=== PATIENT | female | born 1985 | race Caucasian/White ===

== ENCOUNTER 2022-01-06 09:06 | Day surgery (SDC) | payer OTHER, SELFPAY ==
--- NOTE | 2022-01-05 10:15 | P.CONAN_ITS ---
Documented by User: Chetna Weller NP 01/05/22 10:15 HPI - Anesthesia Eval Consult details Narrative: 36yo F for Colonoscopy [facility] Past Medical History Medical History (Updated 01/05/22 @ 07:59 by Mela Quijano RN) Patient denies significant medical history Surgical History Surgical History (Updated 01/05/22 @ 07:59 by Mela Quijano RN) No history of previous surgery Social History Social History Patient Tobacco Use Status: Never used Tobacco Second Hand Smoke Exposure: No Use of substances other than those prescribed or required for medical reasons: No Are you DNR?: No Advance Directives: No Advance Directives Information Provided: Yes Advance Directives on File: No Meds Allergies Allergy/AdvReac Type Severity Reaction Status Date / Time No Known Allergies Allergy Verified 01/06/22 09:17 Home Medications Medication Instructions Recorded Confirmed Last Taken Type albuterol sulfate 90 mcg/actuation 2 puff inhalation Q6-8H PRN Dyspnea 01/05/22 01/06/22 Unknown History aerosol inhaler Exam Exam Date and Time: January 05, 2022 1015 Assessment and Plan Assessment Anesthesia Assessment: Chart Reviewed Documented by User: Mak Muhammad MD 01/06/22 17:17 [facility] Past Medical History Medical History (Updated 01/05/22 @ 07:59 by Mela Quijano RN) Patient denies significant medical history Functional capacity: independent ambulation Family History Family history of problems with anesthesia: No Surgical History Surgical History (Updated 01/05/22 @ 07:59 by Mela Quijano RN) No history of previous surgery History of Problems with Anesthesia: No Social History Social History Patient Tobacco Use Status: Never used Tobacco Second Hand Smoke Exposure: No Use of substances other than those prescribed or required for medical reasons: No Are you DNR?: No Advance Directives: No Advance Directives Information Provided: Yes Advance Directives on File: No Meds Allergies Allergy/AdvReac Type Severity Reaction Status Date / Time No Known Allergies Allergy Verified 01/06/22 09:17 Home Medications Medication Instructions Recorded Confirmed Last Taken Type albuterol sulfate 90 mcg/actuation 2 puff inhalation Q6-8H PRN Dyspnea 01/05/22 01/06/22 Unknown History aerosol inhaler Exam Airway Mallampati Class: III TM Dist: >3cm Neck ROM: Full Loose/Missing/Broken Teeth: Yes Heart: S1,S2 Lungs: b/l breath sounds Assessment and Plan Assessment Anesthesia Assessment: Anesthesia Plan Discussed Final Anesthetic Review Family History of Problems with Anesthesia: No History of Problems with Anesthesia: No NPO: Yes ASA Class: I Final Preanesthetic Review: Meds/Allgs Chart Reviewed, Consent Obtained/Reviewed and Anes Risks/Benef Reviewed Patient Risk: Intermediate Procedure Risk: Intermediate Anesthetic Plan Anesthetic Plan: MAC: Disposition: Standard PACU
[2022-01-06 09:40] VITALS: BMI 20.7
[2022-01-06 09:52] VITALS: BP 115/72; PULSE 57; RESP 16; TEMP 36.9; O2SAT 100
[2022-01-06 10:00] LABS: UPreg QC Valid YES; Urine Pregnancy NEGATIVE (NEGATIVE)
[2022-01-06] MEDS: Lactated Ringers 1,000 ML 100 ML IVCONT (10:06)
--- NOTE | 2022-01-06 11:04 | MHC.SHP ---
Pre-Procedural Eval Section A Date of Service: 01/06/22 Section B Chief Complaint: Change in bowel habit Details of Present Illness: see H&P no changes Relevant Family History (Specify if Yes): No Relevant Social History: None Present Medications: None Medical History: No relevant PMH History of Previous Operations: No relevant previous surgery Allergies: Allergies Allergy/AdvReac Type Severity Reaction Status Date / Time No Known Allergies Allergy Verified 01/06/22 09:17 Review of Systems Sugical H&P ROS: Negative: Constitution, Cardiovascular, Respiratory, Neurological, Psychiatric, Hem-Onc, Allergic/Immunologic, Gastrointestinal, Genitourinary, Musculoskeletal, Integumentary, Endocrine and Eyes/Ears/Nose/Throat Exam Surgical H&P Exam: Normal: HEENT, Normal: Heart, Normal: Lungs, Normal: Extremities, Normal: Abdomen, Normal: Skin and Normal: Neurological Plan Diagnosis/Plan: Unchanged I have reviewed the history and physical and performed a pertinent physical examination on my patient. No changes have occurred unless specified.
[2022-01-06 12:02] VITALS: BP 100/62; PULSE 60; RESP 16; TEMP 36.6; O2SAT 99
--- NOTE | 2022-01-06 12:04 | PM.OP ---
Brief Operative Note Date of Service: 01/06/22 Pre-op diagnosis: change in bowels Post-op diagnosis: same Procedure: colonoscopy Surgeon: Alex Martin Anesthesia: MAC Was an Inside Sales Supervisor used for this Procedure?: No Estimated blood loss (mL): 2 Pathology: other Condition: stable Disposition: PACU
[2022-01-06 12:17] VITALS: BP 93/57; PULSE 45; RESP 16; O2SAT 99
[2022-01-06 12:32] VITALS: BP 92/58; PULSE 43; RESP 16; O2SAT 100
[2022-01-06 12:47] VITALS: BP 102/57; PULSE 58; RESP 16; TEMP 36.8; O2SAT 100
--- NOTE | 2022-01-06 23:33 | OP_ITS ---
SURGEON: Alex Martin MD INDICATIONS: Change in bowel habits. PREOPERATIVE DIAGNOSIS: POSTOPERATIVE DIAGNOSIS: PROCEDURE PERFORMED: Colonoscopy to the terminal ileum with biopsy. ESTIMATED BLOOD LOSS: COMPLICATIONS: ANESTHESIA: Monitored anesthesia care. ASSISTANTS: SPECIMENS: DESCRIPTION OF PROCEDURE: Date: 01/06/22. History and physical performed. The risks and benefits of the procedure were explained to the patient. Informed consent was obtained. The patient was placed in the left lateral decubitus position. A digital rectal exam was performed and was found to be normal. The Olympus pediatric video colonoscope was introduced into the rectum and advanced to the cecum without difficulty. The cecum was identified by transillumination, palpation, and identification of ileocecal valve. Examination was performed. The scope was removed. She tolerated the procedure well and was transferred to recovery area in stable condition. FINDINGS: The terminal ileum was examined and appeared normal. This was biopsied. The visualized colonic mucosa was normal. The quality of the prep was fair with liquid in retained small pieces of stool that was washed and suctioned. Small polyps could have been missed. No polyps were identified. There was no evidence of colitis. Random biopsies were obtained from the sigmoid as well as the terminal ileum. Retroflexed examination was normal. IMPRESSION: Normal colonoscopy. RECOMMENDATION: 1. Follow up the biopsy results. 2. Repeat colonoscopy is recommended in 10 years. MD ANN Walters/HUMA / [id number] MTDD
== END 2022-01-06 13:32 | disposition home or self-care (01) ==
PROVIDERS: Nurse Practitioner; PCP Internal Medicine; Visit Provider Internal Medicine Gastroenterology
PROC: 0DJD8ZZ Inspection of Lower Intestinal Tract, Via Natural or Artificial Opening Endoscopic (ICD-10-PCS; CPT 45378; principal; 2022-01-06 10:20)
DX: R19.4 Change in bowel habit (principal)
CPT/HCPCS: 45380; 81025; 88305; J2250